=== PATIENT | female | born 1980 | race American Indian/Alaskan Native ===

== ENCOUNTER 2016-10-04 21:45 | Inpatient (IN) | payer OTHER ==
[2016-10-04] MEDS ORDERED: LACTATED RINGERS 1,000 ML ONE (22:37)
[2016-10-05] MEDS ORDERED: PITOCin/NS 20 UNIT/1000ML DRIP 20,000 MILLIUNITS/1,000 ML BAG IV ONE (00:19)
[2016-10-05] MEDS ORDERED: LACTATED RINGERS 1,000 ML IV ONE (00:44)
[2016-10-05] MEDS ORDERED: BRETHINE SUB-Q PRN (00:57)
[2016-10-05] MEDS ORDERED: XYLOCAINE 2% INFILTRATI ONE (00:57)
[2016-10-05] MEDS ORDERED: SUBLIMAZE IV PRN (00:57)
[2016-10-05] MEDS ORDERED: MINERAL OIL PO PRN (00:57)
[2016-10-05] MEDS ORDERED: ePHEDrine SULFATE IV PRN (00:57)
[2016-10-05] MEDS ORDERED: PITOCin/NS 20 UNIT/1000ML DRIP 20 UNITS/1,000 ML BAG IV SCH ×2 (01:00)
[2016-10-05] MEDS ORDERED: TUCKS PAD TP PRN (01:02)
[2016-10-05] MEDS ORDERED: DERMOPLAST TP PRN (01:02)
[2016-10-05] MEDS ORDERED: BENADRYL PO PRN (01:02)
[2016-10-05] MEDS ORDERED: LANSINOH TP PRN (01:02)
[2016-10-05] MEDS ORDERED: TYLENOL PO PRN (01:02)
[2016-10-05] MEDS ORDERED: PHENERGAN PR PRN (01:02)
[2016-10-05] MEDS ORDERED: DULCOLAX PR PRN (01:02)
[2016-10-05] MEDS ORDERED: NORCO 5/325 PO PRN (01:02)
[2016-10-05] MEDS ORDERED: MILK OF MAGNESIA PO PRN (01:02)
[2016-10-05] MEDS ORDERED: ZOFRAN IV PRN (01:02)
[2016-10-05] MEDS ORDERED: ANUCORT-HC PR PRN (01:02)
--- NOTE | 2016-10-05 01:09 | History and Physical Report ---
History of Present Illness Date of examination: 10/05/16 Date of admission: 10/05/16 00:09 Chief complaint: Active labor History of present illness: 36 yo presented to triage in active labor and went on to precipitously deliver . [facility] care since early in . Course complicated by AMA and a positive QUAD screen. GBS negative. Past History Past Medical History: no pertinent history Past Surgical History: no surgical history Social history: , full code. denies: smoking, alcohol abuse, prescription drug abuse, IV drug use - Obstetrical History Expected Date of Delivery: 10/06/16 Actual Gestation: 39 Week(s) 6 Day(s) : 6 Para: 5 Hx # Term Pregnancies: 5 Number of Pregnancies: 0 Spontaneous Abortions: 0 Induced : 0 Number of Living Children: 5 Medications and Allergies Allergies Allergy/AdvReac Type Severity Reaction Status Date / Time No Known Allergies Allergy Verified 10/04/16 21:56 Home Medications Medication Instructions Recorded Confirmed Last Taken Type No Known Home Medications [No 10/04/16 10/04/16 Unknown History Reported Home Medications] Active Meds: Active Medications Acetaminophen (Tylenol) 650 mg PO Q4H PRN PRN Reason: Pain MILD(1-3)/Fever >100.5/GARCIA Acetaminophen/Hydrocodone Bitart ([place] 5/325) 2 each PO Q6H PRN PRN Reason: Pain, Moderate (4-6) Benzocaine/Menthol (Dermoplast) 1 spray TP PRN PRN PRN Reason: Episiotomy Pain Bisacodyl (Dulcolax) 10 mg WA BID PRN PRN Reason: Constipation Diphenhydramine HCl (Benadryl) 25 mg PO Q6H PRN PRN Reason: Itching Fentanyl (Sublimaze) 100 mcg IV Q2H PRN PRN Reason: Labor Pain Hydrocortisone Acetate (Anucort-Hc) 25 mg WA BID PRN PRN Reason: Hemorrhoids Lactated Ringer's (Lactated Ringers) 1,000 mls @ 999 mls/hr IV BOLUS ONE Stop: 10/05/16 01:44 Oxytocin/Sodium Chloride (Pitocin/Ns 20 Unit/1000ml Drip) 20 units in 1,000 mls @ 0 mls/hr IV DIRECT FABIEN PRN Reason: As Directed Oxytocin/Sodium Chloride (Pitocin/Ns 20 Unit/1000ml Drip) 20 units in 1,000 mls @ 125 mls/hr IV DIRECT FABIEN Ibuprofen (Motrin) 600 mg PO Q6H FABIEN Magnesium Hydroxide (Milk Of Magnesia) 30 ml PO HS PRN PRN Reason: Constipation Mineral Oil (Mineral Oil) 30 ml PO QHS PRN PRN Reason: Constipation Multi-Ingredient Ointment (Lansinoh) 1 applic TP PRN PRN PRN Reason: Sore Nipples Ondansetron HCl (Zofran) 4 mg IV Q8H PRN PRN Reason: Nausea And Vomiting Promethazine HCl (Phenergan) 25 mg WA Q6H PRN PRN Reason: Nausea And Vomiting Sodium Chloride (Sodium Chloride Flush Syringe 10 Ml) 10 ml IV PRN NR Witch Gilda/Glycerin (Tucks Pad) 1 each TP PRN PRN PRN Reason: Hemorrhoid/cleansing/soothing Review of Systems All systems: negative - Vital Signs Vital signs: Vital Signs Pulse Pulse Ox 98 H 99 10/04/16 22:04 10/04/16 22:04 Temp Pulse Resp BP Pulse Ox 98.5 F 109 H 20 133/84 100 10/04/16 22:07 10/05/16 00:41 10/04/16 22:07 10/05/16 00:41 10/05/16 00:30 - Physical Exam Cardiovascular: Regular rate Lungs: Positive: Normal air movement Uterus: Positive: enlarged Extremities: Positive: normal Deep Tendon Reflex Grade: Normal +2 - Obstetrical FHR comments: Pt with category 1 tracing in triage Cervical Dilatation: 7 (per triage) Results All other labs normal. Assessment and Plan A: IUP @39.6 weeks GBS negative P: Admit to L&D Delivered
--- NOTE | 2016-10-05 01:18 | Procedure Note ---
OB Delivery Note - Delivery Date of Delivery: 10/05/16 (0014) Surgeon: JESSICA MASON Estimated blood loss: 200cc - Vaginal Delivery presentation: vertex Intrapartum events: other(please specify) (Precipitous delivery) Delivery induction: none Delivery monitor: external FHT, external uterine Route of delivery: Delivery placenta: spontaneous Delivery cord: 3 umbilical vessels Delivery laceration: none Anesthesia: none Delivery comments: Baby boy Torres precipitously delivered on 10/05/2016 @ 0014 by RN over intact perineum. Cord was clamped and cut RN. Placenta delivered at [address] [place] [address] side presenting. weighted 7lb 3oz with apgars of 8/9. EBL 200cc. Fundus firm, midline and 3cm below umbilicus. Mom and baby doing well. - Infant A at 1 minute: 8 at 5 minutes: 9 Gender: Male
[2016-10-05] MEDS: MOTRIN PO SCH ×3 (01:20→16:19)
[2016-10-05 01:40] LABS: Hematocrit 37.5 % (30.3-42.9); Hemoglobin 12.5 gm/dl (10.1-14.3); Mean Corpuscular HGB Conc 33 % (30-34); Mean Corpuscular Hemoglobin 31 pg (28-32); Mean Corpuscular Volume 93 fl (79-97); Platelet Count 178 K/mm3 (140-440); Red Blood Count 4.04 M/mm3 (3.65-5.03); Red Cell Distribution Width 13.9 % (13.2-15.2); White Blood Count 12.4 K/mm3 (4.5-11.0)
[2016-10-05] MEDS ORDERED: SODIUM CHLORIDE FLUSH SYRINGE 10 ML IV PRN (02:00)
[2016-10-05 14:14] LABS: Hematocrit 33.1 % (30.3-42.9); Hemoglobin 11.1 gm/dl (10.1-14.3)
[2016-10-06] MEDS: MOTRIN PO SCH ×3 (00:31→13:06)
[2016-10-06] MEDS ORDERED: BOOSTRIX IM ONE (06:00)
[2016-10-06] MEDS ORDERED: DEPO-PROVERA (CONTRACEPTION) IM ONE (10:15)
--- NOTE | 2016-10-06 10:15 | Progress Note ---
Assessment and Plan A: PP Day #1 Stable P: Follow routine orders Depo Provera prior to discharge Plans IUD at 6 Weeks D/C home in the AM Subjective - Subjective Date of service: 10/06/16 Patient reports: appetite normal, voiding normally, pain well controlled, flatus , ambulating normally : doing well Objective - Vital Signs Latest vital signs: Vital Signs Temp Pulse Resp BP 10/06/16 08:50 98.8 F 85 18 105/70 10/06/16 01:05 98.2 F 87 18 104/55 10/05/16 15:38 98.7 F 94 H 20 107/65 Intake and Output 10/05/16 10/06/16 10/06/16 22:59 06:59 14:59 Intake Total 480 180 Output Total 301 Balance 179 180 Intake: Oral 120 Intake, Free Water 360 180 Output: Urine 301 Void 301 Other: Total, Intake Amount 120 Total, Output Amount 300 # Voids Void 1 - Exam Breasts: Present: normal Cardiovascular: Present: Regular rate Lungs: Present: Clear to auscultation, Normal air movement Abdomen: Present: normal appearance, soft, normal bowel sounds Uterus: Present: normal, firm, fundal height below umbilicus Extremities: Present: normal
--- NOTE | 2016-10-06 10:17 | Discharge Summary ---
Providers - Providers Date of Admission: 10/05/16 00:09 Date of discharge: 10/07/16 Attending physician: SOHAM CERVANTES MD Primary care physician: SOHAM CERVANTES MD Hospitalization Reason for admission: active labor Delivery: Episiotomy: none Laceration: none Other procedures: none complications: none Discharge diagnosis: IUP at term delivered [place] baby: male Condition at discharge: Good Disposition: DISCHARGED TO HOME OR SELFCARE Plan - Provider Discharge Summary Activity: routine, no sex for 6 weeks Additional instructions: [] Smoking cessation referral if applicable(refer to patient education folder for contact #) [] Refer to [facility]'s [facility] Booklet Call your doctor immediately for: * Fever > 100.5 * Heavy vaginal bleeding ( >1 pad per hour) * Severe persistent headache * Shortness of breath * Reddened, hot, painful area to leg or breast * Drainage or odor from incision. * Keep incision clean and dry at all times and follow doctor's instructions regarding bathing/showering - Follow up plan Follow up: LASHANDA CAVANAUGH CNM [Advanced Practice Nurse] - 6 Weeks
[2016-10-07] MEDS: MOTRIN PO SCH (12:32)
[2016-10-07 12:39] VITALS: BP 114/74
== END 2016-10-07 13:55 | disposition home or self-care (01) | DRG 775 ==
LOC: TRG 21:45 → LD 10-05 00:09 → OB 10-05 02:22
PROVIDERS: ADMIT Obstetrics & Gynecology; ATTEND Obstetrics & Gynecology
PROC: 10E0XZZ Delivery of Products of Conception, External Approach (ICD-10-PCS; principal; 2016-10-05)
DX: O62.3 Precipitate labor (principal); Z3A.39 39 weeks gestation of pregnancy; Z37.0 Single live birth; O09.43 Supervision of pregnancy with grand multiparity, third trimester
CPT/HCPCS: 36415; 85014; 85018; 85027; 86850; 86900; 86901; 90471; 99211; A6250; G0463; J2590; J7120